=== PATIENT | female | born 1950 | race Caucasian/White ===

== ENCOUNTER 2022-06-22 11:45 | Emergency (ER) | payer MEDICARE, SELFPAY ==
[2022-06-22 12:02] VITALS: BP 127/52; PULSE 67; RESP 16; TEMP 36.6; O2SAT 97
--- NOTE | 2022-06-22 14:21 | ED.FEMALEGU ---
HPI - Female Genitourinary General Chief complaint: Urogenital-Female Stated complaint: Urinary Problem Time Seen by Provider: 06/22/22 14:21 Source: patient, RN notes reviewed and old records reviewed Mode of arrival: ambulatory Limitations: no limitations History of Present Illness HPI Narrative: 72 year old female presents to [facility] care with complaints of urinary symptoms which increased this morning. Patient was treated 06/16/2022 with Macrobid for urinary tract infection and states that symptoms did improve till this morning. Patient reports that she has urinary burning, bladder pressure, spasms with urination, frequency, and dribbling. No fevers, confusion, or feelings of weakness. Patient has taken AZO for her symptoms. MD elicited complaint: UTI Severity scale (1-10): 8 Treatment prior to arrival: OTC urinary analgesics (AZO) Related Data Allergies Allergy/AdvReac Type Severity Reaction Status Date / Time Sulfa (Sulfonamide Allergy Body aches Verified 06/24/22 10:10 Antibiotics) Review of Systems Review of Systems: CONSTITUTIONAL: Denies fever, chills, or sweats. CARDIOVASCULAR: Denies chest pain, palpitations, or edema. RESPIRATORY: Denies cough or dyspnea. GASTROINTESTINAL: Denies abdominal pain,reports some nausea,no vomiting, or diarrhea. GENITOURINARY: Reports dysuria, frequency, urgency, bladder pain and spasms Denies flank pain or hematuria. SKIN: Denies rash or itching. MUSCULOSKELETAL: Denies back pain or myalgia. Denies CVA tenderness NEUROLOGIC: Denies headache All systems reviewed & are unremarkable except as noted in HPI and below PMFSH Past Medical History Medical History Allergies Arthritis Depression Stroke 11/23/2019 Vertigo Surgical History Surgical History H/O knee surgery Right BL lateral tear History of cataract surgery Left and Right Eyes 07/2019 , 09/2019 Family History Family History Grandparent Acute myocardial infarction Sibling Breast cancer Social History Social History Smoking packs per day: 0.5 Smoking cigarettes per day: 10.0 Smoking status: Never smoker Smoking end date: 10/12/20 Alcohol intake: never Lack of Transportation: No Lack of Food: Never True Current Housing: I Have Housing Concerned About Future Housing: No Difficulty Paying Gas/Electric Bills: No Difficulty Paying for Meds: No Currently Unemployed: No Education: Decline to Answer Difficulty w/ Childcare or Family Care: No Comments At time of signature, agree with nursing past medical, surgical, social and family history. There is no relevant family history pertinent to the presenting complaint Exam Narrative: GENERAL: Well-appearing, well-nourished, and in no acute distress. HEAD: Normocephalic, atraumatic. NECK: Supple.no lymphadenopathy CHEST: Clear to auscultation. No respiratory distress.SAO2 97% on room air HEART: Regular rate and rhythm. No murmur heard. Normal peripheral pulses. ABDOMEN: Soft, nontender to palpation, nondistended, normal active bowel sounds. No CVA tenderness, urinary burning, bladder and perineal pressure, urinary frequency and dribbling.Reports some nausea no vomiting or diarrhea. EXTREMITIES: Normal range of motion. No edema. SKIN: Warm, dry, no rash. NEURO: No focal deficits. Alert and oriented x3. Course Course Emergency Course: Patient is aware of diagnosis, understands and agrees to treatment plan.? Anticipatory guidance given.? Patient agrees to follow-up as directed and is aware of reasons to seek care at the emergency department. Portions of this record may have been created with voice recognition software Level of Care: Express Care Visit Vital Signs Vital signs: Vital Signs Temperature 36.6 C /
== END 2022-06-22 14:35 | disposition home or self-care (01) ==
PROVIDERS: Emergency Provider Registered Nurse
DX: N39.0 Urinary tract infection, site not specified (principal); R11.0 Nausea; Z87.891 Personal history of nicotine dependence; M19.90 Unspecified osteoarthritis, unspecified site; Z86.73 Personal history of transient ischemic attack (TIA), and cerebral infarction without residual deficits; F32.9 Major depressive disorder, single episode, unspecified
CPT/HCPCS: 81003; 87077; 87086; 87186; 99213; G0463

== ENCOUNTER 2022-06-24 10:47 | Outpatient (CLI) | payer MEDICARE, SELFPAY ==
[2022-06-24 18:55] LABS: Iron 61 ug/dL (37-170)
[2022-06-24 18:57] LABS: Alanine Aminotransferase 21 U/L (6-35); Albumin Level 3.9 g/dL (3.5-5.1); Alkaline Phosphatase 65 U/L (38-126); Anion Gap 4 mmol/L (8-16); Aspartate Amino Transferase 52 U/L (14-36); Bilirubin,Total 0.3 mg/dL (0.2-1.3); Blood Urea Nitrogen 41 mg/dL (7-17); Calcium 8.8 mg/dL (8.4-10.2); Carbon Dioxide 27 mmol/L (22-30); Chloride 107 mmol/L (98-107); Cholesterol 195 mg/dL (0-200); Estimated Glomerular Filt Rate 37; Glucose 111 mg/dL (65-110); HDL Direct 58 mg/dL; Potassium 4.3 mmol/L (3.4-5.0); Sodium 138 mmol/L (137-145); Triglycerides 122 mg/dL (<150)
[2022-06-24 18:58] LABS: Basophils Percent Auto 0.4 % (0.2-1.2); Eosinophils Absolute Auto 0.1 K/mm3 (0-0.3); Eosinophils Percent Auto 1.1 % (0-4.4); Hematocrit 36.1 % (37.0-47.0); Hemoglobin 11.3 g/dL (12.0-15.0); Immature Granulocyte Absolute 0.02 K/mm3 (0.00-0.031); Immature Granulocyte Percent A 0.2 % (0-0.5); Lymphocytes Absolute Auto 1.44 K/mm3 (0.9-3.2); Lymphocytes Percent Auto 17.1 % (18.3-44.2); Mean Corpuscular HGB Conc 31.3 g/dl (32-36); Mean Corpuscular Hemoglobin 30.5 pg (26-34); Mean Corpuscular Volume 97.6 fl (80-100); Mean Platelet Volume 9.7 fl (7.4-10.4); Monocytes Absolute Auto 0.4 K/mm3 (0.1-0.6); Monocytes Percent Auto 4.9 % (2.6-8.5); Neutrophils Absolute Auto 6.4 K/mm3 (1.3-6.7); Neutrophils Percent Auto 76.3 % (45.5-73.1); Platelet Count Result 280 k/mm3 (150-375); Red Cell Distribution Width 13.5 % (11.5-14.5); White Blood Count 8.4 K/mm3 (4.5-10.0)
[2022-06-24 19:08] LABS: LDL Cholesterol Direct 79 mg/dL
[2022-06-24 19:24] LABS: Percent Iron Saturation 19 % (20-50)
[2022-06-24 20:40] LABS: Vitamin D 25 Hydroxy 23.1 ng/mL
== END 2022-06-24 10:48 | disposition home or self-care (01) ==
PROVIDERS: Visit Provider Clinical Nurse Specialist
DX: E55.9 Vitamin D deficiency, unspecified (principal); I63.9 Cerebral infarction, unspecified; D64.9 Anemia, unspecified; I10 Essential (primary) hypertension
CPT/HCPCS: 36415; 80053; 80061; 82306; 82728; 83540; 83550; 84443; 85025

== ENCOUNTER 2022-07-25 09:23 | Outpatient (CLI) | payer MEDICARE, SELFPAY ==
[2022-07-25 19:45] LABS: Basophils Percent Auto 0.3 % (0.2-1.2); Eosinophils Absolute Auto 0.1 K/mm3 (0-0.3); Hematocrit 37.3 % (37.0-47.0); Hemoglobin 11.8 g/dL (12.0-15.0); Immature Granulocyte Absolute 0.03 K/mm3 (0.00-0.031); Immature Granulocyte Percent A 0.5 % (0-0.5); Lymphocytes Absolute Auto 1.57 K/mm3 (0.9-3.2); Lymphocytes Percent Auto 23.6 % (18.3-44.2); Mean Corpuscular HGB Conc 31.6 g/dl (32-36); Mean Corpuscular Hemoglobin 31.2 pg (26-34); Mean Corpuscular Volume 98.7 fl (80-100); Mean Platelet Volume 9.8 fl (7.4-10.4); Monocytes Absolute Auto 0.4 K/mm3 (0.1-0.6); Monocytes Percent Auto 5.9 % (2.6-8.5); Neutrophils Absolute Auto 4.5 K/mm3 (1.3-6.7); Neutrophils Percent Auto 67.7 % (45.5-73.1); Platelet Count Result 254 k/mm3 (150-375); Red Blood Count 3.78 M/mm3 (4.2-5.4); Red Cell Distribution Width 14.1 % (11.5-14.5); Reticulocyte Hemoglobin Conten 34.9 pg (28.2-35.7); Reticulocyte Percent 2.34 % (0.7-4.3); Reticulocytes Absolute 0.09 B/L (32.2-175.7); White Blood Count 6.7 K/mm3 (4.5-10.0)
[2022-07-25 20:10] LABS: Erythrocyte Sedimentation Rate 22 mm/hr (0-20)
[2022-07-25 20:21] LABS: Iron 93 ug/dL (37-170)
[2022-07-25 20:31] LABS: Percent Iron Saturation 29 % (20-50)
[2022-07-25 21:09] LABS: Alanine Aminotransferase 23 U/L (6-35); Albumin Level 3.9 g/dL (3.5-5.1); Alkaline Phosphatase 61 U/L (38-126); Anion Gap 7 mmol/L (8-16); Aspartate Amino Transferase 48 U/L (14-36); Bilirubin,Total 0.4 mg/dL (0.2-1.3); Blood Urea Nitrogen 35 mg/dL (7-17); CRP < 0.5 mg/dL (<1.0); Calcium 8.9 mg/dL (8.4-10.2); Carbon Dioxide 27 mmol/L (22-30); Chloride 109 mmol/L (98-107); Estimated Glomerular Filt Rate 54; Glucose 96 mg/dL (65-110); Potassium 4.1 mmol/L (3.4-5.0); Sodium 143 mmol/L (137-145)
[2022-07-25 22:18] LABS: Folic Acid 10.2 ng/mL (2.76->20)
== END 2022-07-25 09:24 | disposition home or self-care (01) ==
LOC: ANHGOSHLAB 09:24
PROVIDERS: Visit Provider Clinical Nurse Specialist
DX: D64.9 Anemia, unspecified (principal); R74.8 Abnormal levels of other serum enzymes
CPT/HCPCS: 36415; 80053; 82607; 82728; 82746; 83540; 83550; 85025; 85046; 85652; 86140

== ENCOUNTER 2023-02-26 11:07 | Outpatient (CLI) | payer MEDICARE, SELFPAY ==
[2023-02-26 19:18] LABS: Basophils Percent Auto 0.3 % (0.2-1.2); Eosinophils Absolute Auto 0.1 K/mm3 (0-0.3); Eosinophils Percent Auto 1.6 % (0-4.4); Hematocrit 38.4 % (37.0-47.0); Hemoglobin 12.4 g/dL (12.0-15.0); Immature Granulocyte Absolute 0.03 K/mm3 (0.00-0.031); Immature Granulocyte Percent A 0.5 % (0-0.5); Immature Reticulocyte Fraction 14.2 % (3.0-15.9); Lymphocytes Absolute Auto 1.64 K/mm3 (0.9-3.2); Lymphocytes Percent Auto 26.5 % (18.3-44.2); Mean Corpuscular HGB Conc 32.3 g/dl (32-36); Mean Corpuscular Hemoglobin 31.4 pg (26-34); Mean Corpuscular Volume 97.2 fl (80-100); Mean Platelet Volume 9.6 fl (7.4-10.4); Monocytes Absolute Auto 0.3 K/mm3 (0.1-0.6); Monocytes Percent Auto 5.3 % (2.6-8.5); Neutrophils Absolute Auto 4.1 K/mm3 (1.3-6.7); Neutrophils Percent Auto 65.8 % (45.5-73.1); Platelet Count Result 286 k/mm3 (150-375); Red Blood Count 3.95 M/mm3 (4.2-5.4); Reticulocyte Hemoglobin Conten 33.9 pg (28.2-35.7); Reticulocyte Percent 1.99 % (0.7-4.3); Reticulocytes Absolute 0.08 M/mm3 (0.02-0.1); White Blood Count 6.2 K/mm3 (4.5-10.0)
[2023-02-26 21:07] LABS: Anion Gap 4 mmol/L (8-16); Blood Urea Nitrogen 23 mg/dL (7-17); Calcium 8.9 mg/dL (8.4-10.2); Carbon Dioxide 29 mmol/L (22-30); Chloride 105 mmol/L (98-107); Estimated Glomerular Filt Rate 54; Glucose 94 mg/dL (65-110); Sodium 138 mmol/L (137-145)
== END 2023-02-26 11:08 | disposition home or self-care (01) ==
LOC: ANHGOSHLAB 11:10
PROVIDERS: PCP Internal Medicine; Visit Provider Clinical Nurse Specialist
DX: D64.9 Anemia, unspecified (principal); I10 Essential (primary) hypertension
CPT/HCPCS: 36415; 80048; 85025; 85046

== ENCOUNTER 2023-08-11 00:11 | Day surgery (SDC) | payer MEDICARE, SELFPAY ==
[2023-07-29 11:16] VITALS: BMI 28.9
--- NOTE | 2023-07-31 09:45 | PC.NURSE ---
Spoke with __patient__ regarding medication _plavix__. Pt. verbalizes understanding that the last dose of __plavix___ is to be taken on ___08/06/2023 and the Endoscopist will instruct them when to restart after the procedure.
--- NOTE | 2023-08-08 10:13 | SUR.PREOP ---
Patient called regarding upcoming procedure. Pt updated on arrival date and time. All questions answered
--- NOTE | 2023-08-09 15:22 | PM.HPGS ---
History of Present Illness History of Present Illness Consent: Risks, benefits, and alternatives have been discussed and questions answered. Patient agrees to proceed with procedure. Chief complaint: Other fecal abnormalities Narrative: Marlys Blum is a 73 year old female who is referred for colon cancer screening. Review of Systems Review of Systems: All systems reviewed & are unremarkable except as noted in HPI and below PMFSH Past Medical History Medical History Allergies Arthritis Depression Stroke 11/23/2019 Vertigo Surgical History Surgical History H/O knee surgery Right BL lateral tear History of cataract surgery Left and Right Eyes 07/2019 , 09/2019 Family History Family History Grandparent Acute myocardial infarction Sibling Breast cancer Social History Social History Smoking packs per day: 1 Smoking cigarettes per day: 20.0 Years smoked: 50 Smoking pack-years: 50.00 Smoking status: Former smoker Tobacco type: cigarettes Smoking end date: 10/12/20 Alcohol intake: current Substance use: never Substance use type: does not use Do You Feel Safe in your Home?: Yes Lack of Transportation: No Lack of Food: Never True Current Housing: I Have Housing Concerned About Future Housing: No Difficulty Paying Gas/Electric Bills: No Difficulty Paying for Meds: No Currently Unemployed: No Education: Decline to Answer Difficulty w/ Childcare or Family Care: No Living arrangements: with family Spiritual care concerns: No Meds Home Medications and Allergies Home Medications Medication Instructions Recorded Confirmed Type clopidogrel 75 mg tablet (Plavix) 75 mg PO DAILY #90 tabs 09/23/22 07/29/23 Rx amlodipine 5 mg tablet 5 mg PO DAILY #90 tabs 03/06/23 07/29/23 Rx lisinopril 40 mg tablet 40 mg PO DAILY #90 tabs 03/06/23 07/29/23 Rx sertraline 100 mg tablet 100 mg PO DAILY #90 tabs 03/06/23 07/29/23 Rx atorvastatin 80 mg tablet 80 mg PO QHS #90 tabs 11/13/23 01/16/24 Rx Allergies Allergy/AdvReac Type Severity Reaction Status Date / Time Sulfa (Sulfonamide Allergy Severe Body aches Verified 07/29/23 11:16 Antibiotics) Exam Resp: Auscultation: clear to auscultation bilaterally Cardio: Rate: regular rate Rhythm: regular rhythm GI: GI Palp: Yes Soft to palpation and No Tenderness to palpation present (GI) Assessment and Plan Assessment and plan (1) Positive colorectal cancer screening using Cologuard test: Code(s): R19.5 - Other fecal abnormalities Status: Acute Assessment and Plan: Colonoscopy with possible biopsy or polypectomy or cautery or injection of substances.
[2023-08-11 11:06] VITALS: BP 133/64; PULSE 64; RESP 16; TEMP 36.4; O2SAT 98
--- NOTE | 2023-08-11 11:08 | SUR.PREOP ---
Patient states she is very nauseous and threw up with her prep. She is requesting something for nausea. Dr. Encarnacion notified and orders received for 4mg Zofran IV push once.
[2023-08-11] MEDS: LACTATED RINGERS 1,000 ML 150 ML IV CONT (11:14)
[2023-08-11] MEDS: ONDANSETRON INJ 4 MG/2 ML VIAL IV PUSH (11:15)
--- NOTE | 2023-08-11 12:11 | WPDANESEPPF ---
Anes - Initial Pre Proc Eval Procedure: Operation Date: 08/11/23 12:30 Proposed Procedures p Colonoscopy - Robert Duarte MD Date/Time: 08/11/23 12:11 Surgeon: Robert Duarte MD Pre Op Diagnosis: Other fecal abnormalities Patient Data Age: 73 Gender: F Height: 1.55 m Weight: 70 kg Last Vital Signs Temp 97.6 F 08/11/23 11:06 Pulse 64 08/11/23 11:06 Resp 16 08/11/23 11:06 BP 133/64 08/11/23 11:06 Pulse Ox 98 08/11/23 11:06 O2 Del Method Room Air 08/11/23 11:06 Allergies Allergy/AdvReac Type Severity Reaction Status Date / Time Sulfa (Sulfonamide Allergy Severe Body aches Verified 08/11/23 11:03 Antibiotics) Home Medications Medication Instructions Recorded Confirmed Type clopidogrel 75 mg tablet (Plavix) 75 mg PO DAILY #90 tabs 09/23/22 08/11/23 Rx amlodipine 5 mg tablet 5 mg PO DAILY #90 tabs 03/06/23 08/11/23 Rx lisinopril 40 mg tablet 40 mg PO DAILY #90 tabs 03/06/23 08/11/23 Rx sertraline 100 mg tablet 100 mg PO DAILY #90 tabs 03/06/23 08/11/23 Rx atorvastatin 80 mg tablet 80 mg PO QHS #90 tabs 05/26/23 07/29/23 Rx Patient hx anesthesia problems: none Family hx anesthesia problems: none Results Review: All pre-operative results and documents have been reviewed as part of the pre-operative evaluation. [facility] Past Medical History Medical History Allergies Arthritis Depression Stroke 11/23/2019 Vertigo Surgical History Surgical History H/O knee surgery Right BL lateral tear History of cataract surgery Left and Right Eyes 07/2019 , 09/2019 Family History Family History Grandparent Acute myocardial infarction Sibling Breast cancer Social History Social History Smoking packs per day: 1 Smoking cigarettes per day: 20.0 Years smoked: 50 Smoking pack-years: 50.00 Smoking status: Former smoker Tobacco type: cigarettes Smoking end date: 10/12/20 Alcohol intake: current Substance use: never Substance use type: does not use Do You Feel Safe in your Home?: Yes Lack of Transportation: No Lack of Food: Never True Current Housing: I Have Housing Concerned About Future Housing: No Difficulty Paying Gas/Electric Bills: No Difficulty Paying for Meds: No Currently Unemployed: No Education: Decline to Answer Difficulty w/ Childcare or Family Care: No Living arrangements: with family Spiritual care concerns: No Anes - Eval Final PreProcedure Day of Procedure 08/11/23 12:11 Patient weight: obese Heart: regular rate and rhythm Lungs: clear to auscultation Airway: Mallampati scale class II Neurological: alert and oriented Last oral intake: >/= 8 hours ASA classification: III Emergent: no Anesthetic plan: proceed Anesthesia type and monitoring: general GIVS and standard monitoring Results Review: All pre-operative results and documents have been reviewed as part of the pre-operative evaluation. Informed Consent: The patient's anesthetic plan and its attendant risks and benefits were discussed with the patient/family/POA. Questions were solicited and answers provided to the satisfaction of the patient/family/POA.
[2023-08-11 12:41] VITALS: BP 101/53; PULSE 70; RESP 16; O2SAT 98
[2023-08-11 12:51] VITALS: BP 112/53; PULSE 69; RESP 21; O2SAT 98
[2023-08-11 13:01] VITALS: BP 124/57; PULSE 67; RESP 18; O2SAT 98
== END 2023-08-11 13:13 | disposition home or self-care (01) ==
PROVIDERS: PCP Internal Medicine; Visit Provider Internal Medicine Gastroenterology
PROC: 0DJD8ZZ Inspection of Lower Intestinal Tract, Via Natural or Artificial Opening Endoscopic (ICD-10-PCS; CPT 45378; principal; 2023-08-11 12:30)
DX: Z12.11 Encounter for screening for malignant neoplasm of colon (principal); D12.4 Benign neoplasm of descending colon; K64.8 Other hemorrhoids; K57.30 Diverticulosis of large intestine without perforation or abscess without bleeding; F32.A Depression, unspecified; E66.9 Obesity, unspecified; Z68.29 Body mass index [BMI] 29.0-29.9, adult; Z79.02 Long term (current) use of antithrombotics/antiplatelets; Z87.891 Personal history of nicotine dependence; Z86.73 Personal history of transient ischemic attack (TIA), and cerebral infarction without residual deficits; Z82.49 Family history of ischemic heart disease and other diseases of the circulatory system; Z80.3 Family history of malignant neoplasm of breast
CPT/HCPCS: 45385; 88305; J2405; J2704; J7120

== ENCOUNTER 2024-02-14 16:28 | Emergency (ER) | payer MEDICARE, SELFPAY ==
[2024-02-14] VITALS (9 sets, daily range): BP systolic 120–160; BP diastolic 52–80; PULSE 71–89; RESP 16–25; TEMP 37.3; O2SAT 95–98
--- NOTE | ~2024-02-14 | XR_ITS ---
XR chest 2V DATE: 02/14/2024 17:05 INDICATION: Dizziness TECHNIQUE: AP and lateral views COMPARISON: None FINDINGS: Borderline heart size. Aortic arch and abdominal aortic calcification. No hilar or mediasti nal enlargement. No pulmonary infiltrate or consolidation, pleural effusion or pulmonary vascular congestion or pneumo thorax is detected. Osteopenia. IMPRESSION: No active pulmonary disease Thoracic and abdominal atherosclerosis Reviewed, dictated and finalized at location J.
--- NOTE | 2024-02-14 16:34 | ECG_ITS ---
Test Date: 2024-02-14 16:39:54 Measurements Intervals [place] Rate: 69 P: 39 MI: 158 QRS: 24 QRSD: 85 T: 35 QT: 380 QTc: 410 Interpretive Statements SINUS RHYTHM NORMAL ELECTROCARDIOGRAM No previous ECG available for comparison Electronically Signed On 02-15-2024 08:56:21 CDT by Be Michelle M.D.
[2024-02-14 16:52] LABS: Basophils Percent Auto 0.1 % (0.2-1.2); Eosinophils Absolute Auto 0.1 K/mm3 (0-0.3); Eosinophils Percent Auto 1.7 % (0-4.4); Hematocrit 32.7 % (37.0-47.0); Hemoglobin 10.7 g/dL (12.0-15.0); Immature Granulocyte Absolute 0.02 K/mm3 (0.00-0.031); Immature Granulocyte Percent A 0.3 % (0-0.5); Lymphocytes Absolute Auto 1.18 K/mm3 (0.9-3.2); Mean Corpuscular HGB Conc 32.7 g/dl (32-36); Mean Corpuscular Volume 94.8 fl (80-100); Monocytes Absolute Auto 0.5 K/mm3 (0.1-0.6); Monocytes Percent Auto 6.8 % (2.6-8.5); Neutrophils Absolute Auto 5.2 K/mm3 (1.3-6.7); Neutrophils Percent Auto 74.1 % (45.5-73.1); Platelet Count Result 304 k/mm3 (150-375); Red Blood Count 3.45 M/mm3 (4.2-5.4); Red Cell Distribution Width 12.6 % (11.5-14.5)
[2024-02-14 17:03] LABS: Alanine Aminotransferase 12 U/L (6-35); Albumin Level 3.5 g/dL (3.5-5.1); Alkaline Phosphatase 69 U/L (38-126); Anion Gap 9 mmol/L (4-12); Aspartate Amino Transferase 21 U/L (14-36); Bilirubin,Total 0.3 mg/dL (0.2-1.3); Blood Urea Nitrogen 24 mg/dL (7-17); Calcium 8.5 mg/dL (8.4-10.2); Carbon Dioxide 27 mmol/L (22-30); Chloride 99 mmol/L (98-107); Estimated CRCL calculation 25 ml/min; Estimated Glomerular Filt Rate 32; Glucose 126 mg/dL (65-110); Potassium 3.9 mmol/L (3.4-5.0); Sodium 135 mmol/L (137-145)
[2024-02-14 17:14] LABS: Troponin I < 0.012 ng/mL (0.000-0.034)
[2024-02-14 17:28] LABS: Influenza A QL RT-PCR Negative (Negative); Influenza B QL RT-PCR Negative (Negative); RSV RNA, RT-PCR Negative (Negative); SARS-CoV-2 RNA PCR Negative (Negative)
--- NOTE | 2024-02-14 17:53 | PC.NURSE ---
Patient denies abdominal pain, nausea or vomiting at this time.
--- NOTE | 2024-02-14 18:56 | ED.NAVMDI ---
HPI - Nausea/Vomiting/Diarrhea General Chief complaint: Nausea/Vomiting/Diarrhea Stated complaint: nausea Time Seen by Provider: 02/14/24 17:22 History of Present Illness HPI Narrative: Patient is a 73-year-old female presenting with nausea and vomiting. States that she was out shopping with her [id number] and she became lightheaded and nauseated. States that she has not really had anything to drink today except for a coffee. She vomited several times and then had an episode of vertigo that has since resolved. States that she has a history of vertigo. Currently, she states that she feels well and she would like to go home. She denies any pain. No numbness or weakness. No speech or vision changes. Related Data Allergies Allergy/AdvReac Type Severity Reaction Status Date / Time Sulfa (Sulfonamide Allergy Severe Body aches Verified 02/14/24 17:53 Antibiotics) Review of Systems Review of Systems: All systems reviewed & are unremarkable except as noted in HPI and below PMFSH Past Medical History Medical History Allergies Arthritis Depression Stroke 11/23/2019 Vertigo Surgical History Surgical History H/O knee surgery Right BL lateral tear History of cataract surgery Left and Right Eyes 07/2019 , 09/2019 Family History Family History Grandparent Acute myocardial infarction Sibling Breast cancer Social History Social History Smoking packs per day: 1 Smoking cigarettes per day: 20.0 Years smoked: 50 Smoking pack-years: 50.00 Smoking status: Former smoker Tobacco type: cigarettes Smoking end date: 10/12/20 Alcohol intake: current Substance use: never Substance use type: does not use Do You Feel Safe in your Home?: Yes Lack of Transportation: No Lack of Food: Never True Current Housing: I Have Housing Concerned About Future Housing: No Difficulty Paying Gas/Electric Bills: No Difficulty Paying for Meds: No Currently Unemployed: No Education: Decline to Answer Difficulty w/ Childcare or Family Care: No Living arrangements: with family Spiritual care concerns: No Exam Narrative: GENERAL: Well-appearing, in no acute distress, pleasant HEAD: Normocephalic, atraumatic. EYES: PERRLA and EOMI. ENT: Mucous membranes dry NECK: Supple. CHEST: Clear to auscultation. No respiratory distress. HEART: Regular rate and rhythm ABDOMEN: Soft, nontender, nondistended EXTREMITIES: Normal range of motion. No edema. SKIN: Warm, dry, no rash. NEURO: Alert and oriented x3. PSYCH: Normal mood and affect. Course Vital Signs Vital signs: Vital Signs Temperature 99.2 F 02/14/24 16:33 Pulse Rate 72 02/14/24 16:33 Respiratory Rate 16 02/14/24 16:33 Blood Pressure 120/52 L 02/14/24 16:33 Pulse Oximetry 95 02/14/24 16:33 Temperature 99.2 F 02/14/24 16:33 Pulse Rate 89 02/14/24 20:15 Respiratory Rate 21 H 02/14/24 20:15 Blood Pressure 144/75 H 02/14/24 20:15 Pulse Oximetry 96 02/14/24 20:15 MDM - Nausea/Vomiting/Diarrhea MDM Narrative Medical decision making narrative: 73-year-old female presenting with lightheadedness and nausea. Vitals are stable. Exam remarkable for the above. EKG per my interpretation shows normal sinus rhythm, no ST elevations or depressions. Chest x-ray without acute abnormalities. Currently she denies any complaints. Blood work With elevation in her creatinine and BUN. Concern for dehydration. Patient received a L of fluids and states that she feels back to baseline she wants to go home. Discussed the lab abnormalities and feel she can go home as long as she tries to aggressively hydrate at home. Orthostatic vitals are normal. She denies any current complaints
[2024-02-14] MEDS: SODIUM CHLORIDE 0.9% IV 1,000 ML 999 ML IV CONT (19:09)
--- NOTE | 2024-02-14 19:21 | PC.NURSE ---
this rn assumed care of patient. this rn took patient report from Johnathan Simpson.
== END 2024-02-14 20:25 | disposition home or self-care (01) ==
PROVIDERS: Emergency Medicine; Emergency Provider Emergency Medicine; PCP Internal Medicine
DX: E86.0 Dehydration (principal); R42 Dizziness and giddiness; Z20.822 Contact with and (suspected) exposure to COVID-19; M19.90 Unspecified osteoarthritis, unspecified site; Z86.73 Personal history of transient ischemic attack (TIA), and cerebral infarction without residual deficits; Z87.891 Personal history of nicotine dependence; Z98.42 Cataract extraction status, left eye; Z98.41 Cataract extraction status, right eye; I70.0 Atherosclerosis of aorta
CPT/HCPCS: 36415; 71046; 80053; 84484; 85025; 87637; 93005; 96360; 99284; J7030

== ENCOUNTER 2024-02-23 12:51 | Outpatient (CLI) | payer MEDICARE, SELFPAY ==
[2024-02-23 16:34] LABS: Anion Gap 8 mmol/L (4-12); Blood Urea Nitrogen 24 mg/dL (7-17); Calcium 9.1 mg/dL (8.4-10.2); Carbon Dioxide 30 mmol/L (22-30); Chloride 96 mmol/L (98-107); Estimated Glomerular Filt Rate 44; Glucose 109 mg/dL (65-110); Potassium 4.6 mmol/L (3.4-5.0); Sodium 134 mmol/L (137-145)
== END 2024-02-23 12:52 | disposition home or self-care (01) ==
PROVIDERS: PCP Internal Medicine; Visit Provider Clinical Nurse Specialist
DX: R11.2 Nausea with vomiting, unspecified (principal)
CPT/HCPCS: 36415; 80048

== ENCOUNTER 2024-03-16 11:16 | Outpatient (CLI) | payer MEDICARE, SELFPAY ==
[2024-03-16 15:35] LABS: Anion Gap 7 mmol/L (4-12); Blood Urea Nitrogen 25 mg/dL (7-17); Carbon Dioxide 28 mmol/L (22-30); Chloride 101 mmol/L (98-107); Estimated Glomerular Filt Rate 49; Glucose 91 mg/dL (65-110); Potassium 4.6 mmol/L (3.4-5.0); Sodium 136 mmol/L (137-145)
== END 2024-03-16 11:17 | disposition home or self-care (01) ==
PROVIDERS: PCP Internal Medicine; Visit Provider Clinical Nurse Specialist
DX: R94.4 Abnormal results of kidney function studies (principal)
CPT/HCPCS: 36415; 80048

== ENCOUNTER 2024-07-21 11:28 | Outpatient (CLI) | payer MEDICARE, SELFPAY ==
[2024-07-21 12:38] LABS: Basophils Percent Auto 0.4 % (0.2-1.2); Eosinophils Absolute Auto 0.2 K/mm3 (0-0.3); Eosinophils Percent Auto 2.4 % (0-4.4); Hematocrit 40.1 % (37.0-47.0); Hemoglobin 13.1 g/dL (12.0-15.0); Immature Granulocyte Absolute 0.03 K/mm3 (0.00-0.031); Immature Granulocyte Percent A 0.4 % (0-0.5); Lymphocytes Percent Auto 27.2 % (18.3-44.2); Mean Corpuscular HGB Conc 32.7 g/dl (32-36); Mean Corpuscular Hemoglobin 30.5 pg (26-34); Mean Corpuscular Volume 93.3 fl (80-100); Mean Platelet Volume 9.6 fl (7.4-10.4); Monocytes Absolute Auto 0.5 K/mm3 (0.1-0.6); Monocytes Percent Auto 6.4 % (2.6-8.5); Neutrophils Absolute Auto 4.4 K/mm3 (1.3-6.7); Neutrophils Percent Auto 63.2 % (45.5-73.1); Platelet Count Result 253 k/mm3 (150-375); Red Cell Distribution Width 13.6 % (11.5-14.5)
[2024-07-21 13:18] LABS: Iron 113 ug/dL (37-170)
[2024-07-21 13:20] LABS: Alanine Aminotransferase 17 U/L (6-35); Albumin Level 3.9 g/dL (3.5-5.1); Alkaline Phosphatase 79 U/L (38-126); Anion Gap 3 mmol/L (4-12); Aspartate Amino Transferase 32 U/L (14-36); Bilirubin,Total 0.5 mg/dL (0.2-1.3); Blood Urea Nitrogen 29 mg/dL (7-17); Calcium 9.2 mg/dL (8.4-10.2); Carbon Dioxide 29 mmol/L (22-30); Chloride 104 mmol/L (98-107); Cholesterol 219 mg/dL (0-200); Estimated Glomerular Filt Rate 44; Glucose 99 mg/dL (65-110); HDL Direct 63 mg/dL; Potassium 4.5 mmol/L (3.4-5.0); Sodium 136 mmol/L (137-145); Triglycerides 174 mg/dL (<150)
[2024-07-21 13:26] LABS: Vitamin D 25 Hydroxy 23.7 ng/mL
[2024-07-21 13:29] LABS: Percent Iron Saturation 37 % (20-50)
[2024-07-21 13:32] LABS: LDL Cholesterol Direct 91 mg/dL
[2024-07-21 14:27] LABS: Folic Acid 8.5 ng/mL (2.76->20)
== END 2024-07-21 11:29 | disposition home or self-care (01) ==
LOC: ANHGOSHLAB 11:30
PROVIDERS: PCP Clinical Nurse Specialist; Visit Provider Clinical Nurse Specialist
DX: F41.9 Anxiety disorder, unspecified (principal); R74.8 Abnormal levels of other serum enzymes; I10 Essential (primary) hypertension; E55.9 Vitamin D deficiency, unspecified; R94.4 Abnormal results of kidney function studies; D64.9 Anemia, unspecified; R53.83 Other fatigue
CPT/HCPCS: 36415; 80053; 80061; 82306; 82607; 82728; 82746; 83540; 83550; 84443; 85025

== ENCOUNTER 2024-08-06 07:31 | Outpatient (CLI) | payer MEDICARE, SELFPAY ==
--- NOTE | ~2024-08-06 | US_ITS ---
EXAMINATION: US aorta [facility] DATE: 08/06/2024 INDICATION: Abdominal aortic aneurysm screening. TECHNIQUE: Grayscale, color Doppler, and pulsed Doppler images of the aorta and common iliac arteries were obtained. COMPARISON: None. FINDINGS: The aorta demonstrates atherosclerosis.. The right common iliac artery is normal in caliber. The left common iliac artery is normal in caliber. IMPRESSION: 1. No abdominal aortic aneurysm. Reviewed, dictated and finalized at location B. ING MACHINE OPERATOR/TENDER
--- NOTE | ~2024-08-06 | US_ITS ---
EXAMINATION: US carotid duplex BI DATE: 08/06/2024 09:37 INDICATION: Cerebral infarction TECHNIQUE: Grayscale, color Doppler, and pulsed Doppler images of the cervical carotid arteries were obtained. The degree of vessel stenosis is placed in one of the following categories: normal, <50%, 5 0-69%, >=70% but less than near-occlusion, near-occlusion, or total occlusion. Note that percent sten osis relative to normal distal artery lumen diameter is indirectly measured from velocity measurement s as described by Fidel, et al. Radiology 2003; 229:340-346. COMPARISON: None. FINDINGS: RIGHT: The right common carotid artery (CCA) peak systolic velocity (PSV) is 63 cm/s. The right internal car otid artery (ICA) PSV is 18 cm/s. The right ICA end-diastolic velocity (EDV) is 69 cm/s. The right IC A/CCA PSV ratio is 1.1. Grayscale and color Doppler images yield an estimate of <50% diameter reducti on from plaque in the ICA. The external carotid artery (ECA) PSV is 93 cm/s. There is antegrade flow in the right vertebral artery. LEFT: The left CCA PSV is 61 cm/s. The left ICA PSV is 88 cm/s. The left ICA EDV is 34 cm/s. The left ICA/C CA PSV ratio is 1.4. Grayscale and color Doppler images yield an estimate of <50% diameter reduction from plaque in the ICA. The ECA PSV is 55 cm/s. There is antegrade flow in the left vertebral artery. IMPRESSION: 1. <50% stenosis in the right internal carotid artery. 2. <50% stenosis in the left internal carotid artery. Reviewed, dictated and finalized at location A. E MAN
--- NOTE | 2024-08-06 07:37 | ECHO_ITS ---
Patient Info Name: Marlys Blum Age: 74 years : 1950 Gender: Female Ht: 61 in Wt: 151 lbs BSA: 1.74 m2 HR: 69 bpm BP: 142 / 88 mmHg Technical Quality: Good Exam Date: 08/06/2024 7:43 AM Exam Location: Echo Lab Patient Status: Outpatient Admit Date: 08/06/2024 Staff Ordering Physician: Solange Gonsales Coroner'S Juror: Lexis Pineda RDCS Attending Provider: Solange Gonsales Referring Physician: Ilda JOYA; Exam Type: CA echo doppler color flow Study Info Indications I63.9 - CEREBRAL INFARCT UNSPECIFIED Complete two-dimensional, color flow and Doppler transthoracic echocardiogram is performed. Strain analysis performed. Summary 1. Complete two-dimensional, color flow and Doppler transthoracic echocardiogram is performed. 2. Left ventricular chamber dimension is normal. 3. Left ventricular systolic function is normal, estimated at 60-65%. 4. There is mild concentric increased left ventricular wall thickness. 5. The left ventricular diastolic function is grade I diastolic dysfunction. 6. E/e' 12 is mildly elevated. 7. Global longitudinal strain is normal at -17.5%. 8. Left atrial chamber dimension is moderately enlarged. 9. Atrial septal aneurysm with septum bowed to right atrium suggesting increased left atrial pressure. 10. There is mild aortic valve sclerosis. 11. There is trace mitral valve regurgitation. 12. No pulmonary hypertension, estimated pulmonary arterial systolic pressure is 37 mmHg. Left Ventricle E/e' 12 is mildly elevated. Global longitudinal strain is normal at -17.5%. Left ventricular chamber dimension is normal. Left ventricular systolic function is normal, estimated at 60-65%. There is mild concentric increased left ventricular wall thickness. The left ventricular diastolic function is grade I diastolic dysfunction. Right Ventricle Right ventricular systolic function is normal and with normal TAPSE 2.2 cm. Right ventricular chamber dimension is normal. Left Atria Left atrial chamber dimension is moderately enlarged. Right Atria Atrial septal aneurysm with septum bowed to right atrium suggesting increased left atrial pressure. No interatrial shunt by color doppler. Right atrial chamber dimension is normal. Aortic Valve The aortic valve is trileaflet. There is mild aortic valve sclerosis. There is no aortic valve stenosis. There is no aortic valve regurgitation. Pulmonic Valve There is no pulmonic regurgitation. Mitral Valve There is no mitral valve stenosis. There is trace mitral valve regurgitation. Tricuspid Valve There is no tricuspid valve regurgitation. No pulmonary hypertension, estimated pulmonary arterial systolic pressure is 37 mmHg. Pericardium/Pleural There is no pericardial effusion. Inferior Vena Cava Normal inferior vena cava with >50% collapse upon inspiration consistent with normal right atrial pressure, 5 mmHg. Aorta The aortic root size at the sinus of Valsalva is normal. Left Ventricular Outflow Tract Name Value Normal LVOT 2D LVOT Diameter 1.9 cm LVOT Doppler LVOT Peak Gradient 5 mmHg LVOT Mean Gradient 3 mmHg LVOT VTI 26 cm LVOT VTI/AV VTI Ratio 0.6 LVOT Stroke Volume 77 ml LVOT CO 4.8 l/min LVOT CI 2.8 l/min/m2 Pulmonic Valve Name Value Normal RVOT Doppler RVOT Peak Gradient 3 mmHg PV Doppler PV Peak Gradient 5 mmHg Mitral Valve Name Value Normal MV Doppler MV Decel Austin 439 cm/s2 MV PHT 59 ms MV Area (PHT) 3.7 cm2 4.0-5.0 MV Diastolic Function MV E Peak Velocity 90 cm/s MV A Peak Velocity 117 cm/s MV E/A 0.8 MV Decel Time 205 ms Tricuspid Valve Name Value Normal TV Regurgitation Doppler TR Peak Velocity 283 cm/s TR Peak Gradient 32 mmHg Estimated PAP/RSVP RA Pressure 5 mmHg <=5 PA Systolic Pressure 37 mmHg <36 RV Systolic Pressure 37 mmHg <36 Aorta Name Value Normal Ascending Aorta Ao Root Diameter (MM) 2.9 cm Ao Root Diam Index (MM) 1.7 cm/m2 Aortic Valve Name Value Normal AV Doppler AV Peak Velocity 211 cm/s AV Peak Gradient 17 mmHg AV Mean Gradient 8 mmHg AV VTI 45 cm AV Area (Cont Eq VTI) 1.7 cm2 >=3.0 AV Area (Cont Eq Roman) 1.6 cm2 AV Regurgitation 2D LVOT Area 2.9 cm2 Ventricles Name Value Normal LV Dimensions 2D/MM IVS Diastolic Thickness (2D) 1.1 cm 0.6-1.0 IVS Diastole Thickness (MM) 1.7 cm 0.6-0.9 LVID Diastole (2D) 4.0 cm 3.8-5.2 LVID Diastole (MM) 5.1 cm 3.8-5.2 LVIW Diastolic Thickness (2D) 1.1 cm 0.6-0.9 LVIW Diastolic Thickness (MM) 1.0 cm 0.6-0.9 LVID Systole (2D) 2.7 cm 2.2-3.5 LVID Systole (MM) 2.4 cm 2.2-3.5 LVOT Diameter 1.9 cm LV Mass (2D Cubed) 146.23 g 67.00-162.00 LV Mass Index (2D Cubed) 84 g/m2 43-95 Relative Wall Thickness (2D) 0.55 LV Mass (MM Cubed) 276.20 g 67.00-162.00 LV Mass Index (MM Cubed) 159 g/m2 43-95 Relative Wall Thickness (MM) 0.37 LV Fractional Shortening/Ejection Fraction 2D/MM LV Fractional Shortening (2D) 33 % 27-45 LV Fractional Shortening (MM) 53 % 27-45 LV EF (MM Teicholz) 84 % 54-74 LV EF (2D Teicholz) 62 % 54-74 LV Diastolic Volume (4C MOD) 64 ml LV EF (4C MOD) 64 % LV Diastolic Volume (2C MOD) 68 ml LV EF (2C MOD) 60 % LV Diastolic Volume (BP MOD) 67 ml 46-106 LV Diastolic Volume Index (BP MOD) 38 ml/m2 29-61 LV Systolic Volume (BP MOD) 27 ml 14-42 LV Systolic Volume Index (BP MOD) 15 ml/m2 8-24 LV EF (BP MOD) 60 % 54-74 LV Diastolic Length (4C) 7.6 cm LV Systolic Length (4C) 6.6 cm LV Stroke Volume (4C MOD) 41 ml Atria Name Value Normal LA Dimensions LA Dimension (MM) 3.3 cm 2.7-3.8 LA Volume (4C A-L) 77 ml LA Volume (BP A-L) 92 ml RA Dimensions RA Area (4C) 13.3 cm2 <=18.0 EchoPAC Name Value Normal AutoEF LVCO_BiP_Q (Blji4FQC) 3.0 l/min LVEF_BiP_Q (Jybd2FIM) 56 % LVSV_BiP_Q (Gzms5NSJ) 46 ml LVVED_BiP_Q (Dnms5QQM) 81 ml LVVES_BiP_Q (Vrcy9XID) 35 ml HR_4Ch_Q (Jyde0MNT) 66 bpm LVCO_4Ch_Q (Kgje6CXI) 3.0 l/min LVEF_4Ch_Q (Imjy3DKL) 58 % LVLd_4Ch_Q (Hfgr5ZHA) 6.9 cm LVLs_4Ch_Q (Kvyr7NKX) 5.7 cm LVSV_4Ch_Q (Uffp9QVL) 45 ml LVVED_4Ch_Q (Bbfj7FFR) 78 ml LVVES_4Ch_Q (Fbgb6OKV) 33 ml HR_2Ch_Q (Dwxm0IGD) 66 bpm LVCO_2Ch_Q (Xinh4BQI) 3.0 l/min LVEF_2Ch_Q (Nnzd0WGU) 56 % LVLd_2Ch_Q (Wohk7BZH) 7.2 cm LVLs_2Ch_Q (Azyk5ZHG) 6.0 cm LVSV_2Ch_Q (Sjom6DSV) 45 ml LVVED_2Ch_Q (Zcid1SVP) 81 ml LVVES_2Ch_Q (Sivc3EHR) 36 ml GLORIA AA peak sys SL (AWMA) 13.7 % AAS peak sys SL (AWMA) 30.9 % AI peak sys SL (AWMA) 18.9 % AL peak sys SL (AWMA) 18.2 % AP peak sys SL (AWMA) 11.2 % peak sys SL (AWMA) 25.5 % AVC (AWMA) 390 ms BA peak sys SL (AWMA) 17.3 % BAS peak sys SL (AWMA) 16.2 % BI peak sys SL (AWMA) 11.0 % BL peak sys SL (AWMA) 17.7 % BP peak sys SL (AWMA) 22.4 % BS peak sys SL (AWMA) 6.9 % G peak SL(A2C) (AWMA) 16.4 % G peak SL(A4C) (AWMA) 17.6 % G peak SL(APLAX) (AWMA) 18.5 % G peak SL(Avg) (AWMA) 17.5 % MA peak sys SL (AWMA) 23.8 % MAS peak sys SL (AWMA) 30.3 % MA peak sys SL (AWMA) 14.7 % ML peak sys SL (AWMA) 20.2 % MP peak sys SL (AWMA) 5.8 % MS peak sys SL (AWMA) 18.9 % Report Signatures
== END 2024-08-06 07:32 | disposition home or self-care (01) ==
PROVIDERS: PCP Clinical Nurse Specialist; Visit Provider Clinical Nurse Specialist
DX: I10 Essential (primary) hypertension (principal); I70.0 Atherosclerosis of aorta; R42 Dizziness and giddiness; Z87.891 Personal history of nicotine dependence; I63.9 Cerebral infarction, unspecified; I25.3 Aneurysm of heart; I35.8 Other nonrheumatic aortic valve disorders; I65.23 Occlusion and stenosis of bilateral carotid arteries
CPT/HCPCS: 76706; 93306; 93880

== ENCOUNTER 2025-02-04 12:31 | Outpatient (CLI) | payer MEDICARE, SELFPAY ==
[2025-02-04 19:18] LABS: Alanine Aminotransferase 16 U/L (6-35); Albumin Level 3.7 g/dL (3.5-5.1); Alkaline Phosphatase 89 U/L (38-126); Anion Gap 5 mmol/L (4-12); Aspartate Amino Transferase 34 U/L (14-36); Bilirubin,Total 0.3 mg/dL (0.2-1.3); Blood Urea Nitrogen 21 mg/dL (7-17); Calcium 9.3 mg/dL (8.4-10.2); Carbon Dioxide 30 mmol/L (22-30); Chloride 98 mmol/L (98-107); Estimated Glomerular Filt Rate 47; Glucose 90 mg/dL (65-110); Potassium 4.3 mmol/L (3.4-5.0); Sodium 133 mmol/L (137-145); Total Protein 6.7 g/dL (6.3-8.2)
[2025-02-04 21:54] LABS: MALB Creatinine Ratio > 929.1 mg/g (0-30)
== END 2025-02-04 12:32 | disposition home or self-care (01) ==
LOC: ANHGOSHLAB 12:32
PROVIDERS: PCP Clinical Nurse Specialist; Visit Provider Clinical Nurse Specialist
DX: R94.4 Abnormal results of kidney function studies (principal); I10 Essential (primary) hypertension
CPT/HCPCS: 36415; 80053; 82043

== ENCOUNTER 2025-02-11 11:43 | Outpatient (CLI) | payer MEDICARE, SELFPAY ==
[2025-02-11 15:07] LABS: Hemoglobin A1C 5.9 % (<5.7)
[2025-02-11 15:21] LABS: Anion Gap 8 mmol/L (4-12); Blood Urea Nitrogen 23 mg/dL (7-17); Calcium 9.2 mg/dL (8.4-10.2); Carbon Dioxide 26 mmol/L (22-30); Chloride 100 mmol/L (98-107); Estimated Glomerular Filt Rate 44; Glucose 99 mg/dL (65-110); Potassium 4.4 mmol/L (3.4-5.0); Sodium 134 mmol/L (137-145)
[2025-02-11 16:49] LABS: MALB Creatinine Ratio 1690.5 mg/g (0-30)
[2025-02-14 13:08] LABS: ANA by IFA Rfx Titer/Pattern Negative (.)
[2025-02-14 16:08] LABS: Albumin 3.5 g/dL (2.9-4.4); Alpha-1-Globulin 0.3 g/dL (0.0-0.4); Alpha-2-Globulin 1.0 g/dL (0.4-1.0); Gamma Globulin 0.6 g/dL (0.4-1.8)
[2025-02-15 14:08] LABS: Albumin, U 76.9 % (.); Alpha-1-Globulin, U 5.0 % (.); Alpha-2-Globulin, U 3.5 % (.); Beta Globulin, U 10.9 % (.); Gamma Globulin, U 3.7 % (.)
== END 2025-02-11 11:44 | disposition home or self-care (01) ==
LOC: ANHGOSHLAB 11:44
PROVIDERS: PCP Clinical Nurse Specialist; Visit Provider Clinical Nurse Specialist
DX: R94.4 Abnormal results of kidney function studies (principal); R80.9 Proteinuria, unspecified; R73.01 Impaired fasting glucose
CPT/HCPCS: 36415; 80048; 82043; 83036; 84155; 84156; 84165; 84166; 86038

== ENCOUNTER 2025-03-04 01:30 | Day surgery (SDC) | payer MEDICARE, SELFPAY ==
[2025-02-18 11:49] VITALS: BMI 30.4
[2025-03-04 09:25] VITALS: BP 143/71; PULSE 70; RESP 18; TEMP 36.1; O2SAT 95; BMI 30.2
[2025-03-04] MEDS: LACTATED RINGERS 1,000 ML 150 ML IV CONT (09:30)
--- NOTE | 2025-03-04 10:11 | WPDANESEPPF ---
Anes - Initial Pre Proc Eval Procedure: Operation Date: 03/04/25 11:00 Proposed Procedures p Esophagogastroduodenoscopy - Carlos Berman MD Date/Time: 03/04/25 10:11 Surgeon: Carlos Berman MD Pre Op Diagnosis: Gastro-esophageal reflux disease without esophagit Patient Data Age: 74 Gender: F Height: 1.55 m Weight: 72.7 kg Last Vital Signs Temp 36.1 C L 03/04/25 09:25 Pulse 70 03/04/25 09:25 Resp 18 03/04/25 09:25 BP 143/71 H 03/04/25 09:25 Pulse Ox 95 03/04/25 09:25 O2 Del Method Room Air 03/04/25 09:25 Allergies Allergy/AdvReac Type Severity Reaction Status Date / Time Sulfa (Sulfonamide Allergy Severe Body aches Verified 03/04/25 09:23 Antibiotics) Tetracyclines AdvReac Unknown Verified 03/04/25 09:23 Home Medications ?Medication ?Instructions ?Recorded ?Confirmed ?Type aspirin 81 mg tablet,delayed 81 mg PO DAILY 07/16/24 03/04/25 History release pantoprazole 40 mg tablet,delayed 40 mg PO QAM #30 tabs 07/23/24 02/18/25 Rx release atorvastatin 80 mg tablet 80 mg PO QHS #90 tabs 01/27/25 03/04/25 Rx lisinopril 40 mg tablet 40 mg PO DAILY #90 tabs 02/02/25 03/04/25 Rx sertraline 100 mg tablet 100 mg PO DAILY #90 tabs 02/02/25 03/04/25 Rx ondansetron 4 mg disintegrating 4 mg PO Q6H PRN nausea and 02/28/25 03/04/25 Rx tablet vomiting #90 tabs amlodipine 5 mg tablet 5 mg PO DAILY #90 tabs 03/02/25 03/04/25 Rx Patient hx anesthesia problems: none Family hx anesthesia problems: none Results Review: All pre-operative results and documents have been reviewed as part of the pre-operative evaluation. [facility] Past Medical History Medical History Former smoker Arthritis Stroke 11/23/2019 Depression Vertigo Allergies Surgical History Surgical History History of cataract surgery Left and Right Eyes 07/2019 , 09/2019 H/O knee surgery Right BL lateral tear Family History Family History Grandparent Acute myocardial infarction Sibling Breast cancer Social History Social History Smoking packs per day: 1 Smoking cigarettes per day: 20.0 Years smoked: 50 Smoking pack-years: 50.00 Smoking status: Former smoker Tobacco type: cigarettes Smoking end date: 10/12/20 Alcohol intake: never Substance use: never Substance use type: does not use Do You Feel Safe in your Home?: Yes Lack of Transportation: No Lack of Food: Never True Current Housing: I Have Housing Concerned About Future Housing: No Difficulty Paying Gas/Electric Bills: No Difficulty Paying for Meds: No Currently Unemployed: No Education: Decline to Answer Difficulty w/ Childcare or Family Care: No Living arrangements: with family Spiritual care concerns: No Anes - Eval Final PreProcedure Day of Procedure 03/04/25 10:11 Patient weight: obese Heart: regular rate and rhythm Lungs: clear to auscultation Airway: Mallampati scale class II Neurological: alert and oriented Last oral intake: >/= 8 hours ASA classification: III Emergent: no Anesthetic plan: proceed Anesthesia type and monitoring: general GIVS and standard monitoring Results Review: All pre-operative results and documents have been reviewed as part of the pre-operative evaluation. Informed Consent: The patient's anesthetic plan and its attendant risks and benefits were discussed with the patient/family/POA. Questions were solicited and answers provided to the satisfaction of the patient/family/POA.
--- NOTE | 2025-03-04 10:24 | PM.HPGS ---
History of Present Illness History of Present Illness Consent: Risks, benefits, and alternatives have been discussed and questions answered. Patient agrees to proceed with procedure. Chief complaint: Gastro-esophageal reflux disease without esophagit Narrative: Marlys Blum is a 74 year old female here for first egd, 2 years of nausea, using zofran prn Review of Systems Review of Systems: All systems reviewed & are unremarkable except as noted in HPI and below PMFSH Past Medical History Medical History (Updated 03/04/25 @ 10:11 by Rodo Jackson MD) Former smoker Arthritis Stroke 11/23/2019 Depression Vertigo Allergies Surgical History Surgical History History of cataract surgery Left and Right Eyes 07/2019 , 09/2019 H/O knee surgery Right BL lateral tear Family History Family History Grandparent Acute myocardial infarction Sibling Breast cancer Social History Social History Smoking packs per day: 1 Smoking cigarettes per day: 20.0 Years smoked: 50 Smoking pack-years: 50.00 Smoking status: Former smoker Tobacco type: cigarettes Smoking end date: 10/12/20 Alcohol intake: never Substance use: never Substance use type: does not use Do You Feel Safe in your Home?: Yes Lack of Transportation: No Lack of Food: Never True Current Housing: I Have Housing Concerned About Future Housing: No Difficulty Paying Gas/Electric Bills: No Difficulty Paying for Meds: No Currently Unemployed: No Education: Decline to Answer Difficulty w/ Childcare or Family Care: No Living arrangements: with family Spiritual care concerns: No Meds Home Medications and Allergies Home Medications ?Medication ?Instructions ?Recorded ?Confirmed ?Type aspirin 81 mg tablet,delayed 81 mg PO DAILY 07/16/24 03/04/25 History release pantoprazole 40 mg tablet,delayed 40 mg PO QAM #30 tabs 07/23/24 02/18/25 Rx release atorvastatin 80 mg tablet 80 mg PO QHS #90 tabs 01/27/25 03/04/25 Rx lisinopril 40 mg tablet 40 mg PO DAILY #90 tabs 02/02/25 03/04/25 Rx sertraline 100 mg tablet 100 mg PO DAILY #90 tabs 02/02/25 03/04/25 Rx ondansetron 4 mg disintegrating 4 mg PO Q6H PRN nausea and 02/28/25 03/04/25 Rx tablet vomiting #90 tabs amlodipine 5 mg tablet 5 mg PO DAILY #90 tabs 03/02/25 03/04/25 Rx Allergies Allergy/AdvReac Type Severity Reaction Status Date / Time Sulfa (Sulfonamide Allergy Severe Body aches Verified 03/04/25 09:23 Antibiotics) Tetracyclines AdvReac Unknown Verified 03/04/25 09:23 Vital Signs Vital Signs - 24 hr 03/04/25 09:25 Temperature 97 F L Pulse Rate 70 Respiratory Rate 18 Blood Pressure 143/71 H Pulse Oximetry 95 Oxygen Delivery Room Air Exam Const: General: comfortable and no acute distress HENMT: Face/Nose/Sinus: Normal nares present Eyes: General: appearance normal, both eyes and all related structures Neck: Neck: no JVD Resp: Auscultation: clear to auscultation bilaterally Cardio: Rate: regular rate Rhythm: regular rhythm GI: Inspection: non-distended GI Palp: Yes Soft to palpation Skin: General skin exam: normal color Neuro: Speech: normal speech Extrem: General: normal to inspection Psych: Mental Status: mental status grossly normal Assessment and Plan Assessment and plan (1) Nausea & vomiting: Qualifiers: Vomiting type: unspecified Qualified Code(s): R11.2 - Nausea with vomiting, unspecified Code(s): R11.2 - Nausea with vomiting, unspecified Status: Acute Assessment and Plan: egd with bx (2) GERD (gastroesophageal reflux disease): Qualifiers: Esophagitis presence: esophagitis presence not specified Qualified Code(s): K21.9 - Gastro-esophageal reflux disease without esophagitis Code(s): K21.9 - Gastro-esophageal reflux disease without esophagitis Status: Acute
[2025-03-04 10:34] VITALS: BP 122/62; PULSE 65; RESP 17; O2SAT 100
--- NOTE | 2025-03-04 10:34 | S_PTH ---
PATIENT: Marlys Blum LOC: [facility] Vu#:[id number] AGE/SX: 74/F ROOM: RE03/04/[address]: Carlos Berman MD : 1950 BED: DIS: 03/04/2025 SPEC #: [id number] RECD: 03/04/25 11:15 STATUS: SHIVANI REJuan Luis #: [id number] YENI: 03/04/25 10:[address]: Carlos Berman DEPT: [facility] Surgical RECD BY: Laurie Allen ENTERED: 03/04/25 11:15 SP TYPE: Surgical OTHR DR: Solange Gonsales, YUAN Tissues: A - Gastric Biopsy B - Small Bowel Bx Procedures: Hematoxylin and Eosin Stain Gross and Microscopic Level 4
[2025-03-04 10:44] VITALS: BP 128/68; PULSE 65; RESP 16; O2SAT 96
[2025-03-04 10:54] VITALS: BP 151/78; PULSE 66; RESP 15; O2SAT 97
== END 2025-03-04 11:05 | disposition home or self-care (01) ==
PROVIDERS: PCP Clinical Nurse Specialist; Visit Provider Internal Medicine Gastroenterology
PROC: 0DJ08ZZ Inspection of Upper Intestinal Tract, Via Natural or Artificial Opening Endoscopic (ICD-10-PCS; CPT 43239; principal; 2025-03-04 11:00)
DX: K21.9 Gastro-esophageal reflux disease without esophagitis (principal); F32.A Depression, unspecified; M19.90 Unspecified osteoarthritis, unspecified site; E66.9 Obesity, unspecified; Z68.30 Body mass index [BMI] 30.0-30.9, adult; Z79.82 Long term (current) use of aspirin; Z98.890 Other specified postprocedural states; Z87.891 Personal history of nicotine dependence; Z86.73 Personal history of transient ischemic attack (TIA), and cerebral infarction without residual deficits; Z80.3 Family history of malignant neoplasm of breast; Z82.49 Family history of ischemic heart disease and other diseases of the circulatory system
CPT/HCPCS: 43239; 88305; J2704; J7120